=== PATIENT | female | born 1990 | race Caucasian/White ===

== ENCOUNTER 2016-05-16 23:28 | Inpatient (IN) | payer MEDICAID, OTHER ==
[~2016-05-16] VITALS: Ht 170.2 cm; Wt 108.9 kg
[~2016-05-16 23:28] MED LIST: AZIT-21 PO; IBP600T1 PO
[2016-05-17] VITALS (14 sets, daily range): BP systolic 80–122; BP diastolic 37–72
[2016-05-17] MEDS ORDERED: NS IV 1000 ML 1,000 ML IV ONE (00:09)
[2016-05-17 00:31] LABS: BASOPHILS % (AUTO) 0 % (0-10); EOSINOPHILS % (AUTO) 0 % (0-10); LYMPHOCYTES # (AUTO) 1.9 X 10^3 (1.0-4.0); LYMPHOCYTES % (AUTO) 13 % (12-44); MEAN CORPUSCULAR HEMOGLOBIN 29 PG (25-34); MEAN CORPUSCULAR HGB CONC 35 G/DL (32-36); MEAN CORPUSCULAR VOLUME 82 FL (80-99); MEAN PLATELET VOLUME 9.5 FL (7.4-10.4); MONOCYTES # (AUTO) 0.4 X 10^3 (0.0-1.0); MONOCYTES % (AUTO) 3 % (0-12); NEUTROPHILS # (AUTO) 12.2 X 10^3 (1.8-7.8); NEUTROPHILS % (AUTO) 84 % (42-75); PLATELET COUNT 328 10^3/uL (130-400); RED BLOOD COUNT 4.04 10^6/uL (4.35-5.85); RED CELL DISTRIBUTION WIDTH 12.8 % (10.0-14.5); WHITE BLOOD COUNT 14.5 10^3/uL (4.3-11.0)
[2016-05-17] MEDS ORDERED: NS IV 500 ML 500 ML IV ONE (01:21)
[2016-05-17] MEDS ORDERED: MISOPROSTOL 200 MCG (CYTOTEC) TABLET PO ONE ×2 (01:30→09:15)
--- NOTE | 2016-05-17 01:57 | ED GU-Female ---
General Chief Complaint: -Female Stated Complaint: POSS MISCARRIAGE BLEEDING Nursing Triage Note: PATIENT REPORTS VAGINAL BLEEDING STARTING AT 1999, PATIENT REPORTS WAS EVALUATED YESTERDAY FOR SAME AND HAD BLOOD WORK DONE Nursing Sepsis Screen: No Definite Risk Source: patient, old records Exam Limitations: no limitations History of Present Illness Time seen by provider: 23:35 Initial Comments This 25-year-old young lady presents to the emergency room with suspected spontaneous miscarriage and vaginal hemorrhaging. She reports 2 prior ultrasounds have been performed in [place]. The last one was performed on May 15. Records from [facility] were reviewed. Hemoglobin on May 15 was 13.3. HCG was 10,857. Ultrasound report reads "fluid collection within the endometrial cavity without ultrasound features to provide confirmation of a viable intrauterine . Diagnostic considerations include early , failed , ectopic . The possibility of gestational trophoblastic disease should also be considered. Recommend laboratory and ultrasound follow-up in 3 days." Patient continues to have heavy bleeding has worsened over the last few hours. She denies pain or fever. She additionally presented to the [place] emergency room but reported the wait was long. She therefore decided to present to [facility]. Her therapy director is Dr. Gotti. Allergies and Home Medications Allergies Coded Allergies: Sulfa (Sulfonamide Antibiotics) (Verified Allergy, Unknown, 05/16/16) azithromycin (Verified Allergy, Unknown, 05/16/16) Home Medications No Active Prescriptions or Reported Meds Constitutional: no symptoms reported EENTM: no symptoms reported Respiratory: no symptoms reported Cardiovascular: see HPI Gastrointestinal: no symptoms reported Genitourinary: see HPI : Yes Musculoskeletal: no symptoms reported Skin: no symptoms reported Psychiatric/Neurological: No Symptoms Reported Endocrine: No Symptoms Reported Hematologic/Lymphatic: No Symptoms Reported Past Cppptal-Cbrede-Mvnvle Hx Patient Social History Alcohol Use: Denies Use Recreational Drug Use: No Smoking Status: Never a Smoker Recent Foreign Travel: No Contact w/Someone Who Travel: No Recent Infectious Disease Expo: No Recent Hopitalizations: No Surgeries HX Surgeries: Yes (dental) Respiratory Hx Respiratory Disorders: No Cardiovascular Hx Cardiac Disorders: No Neurological Hx Neurological Disorders: No Reproductive System Hx : 3 Hx Para: 1 Hx Total # of Abortions (Spona: 2 Genitourinary Hx Genitourinary Disorders: No Gastrointestinal Hx Gastrointestinal Disorders: No Musculoskeletal Hx Musculoskeletal Disorders: No Endocrine Hx Endocrine Disorders: No HEENT HX ENT Disorders: No Cancer Hx Cancer: No Psychosocial Hx Psychiatric Problems: No Integumentary HX Skin/Integumentary Disorder: No Blood Transfusions Hx Blood Disorders: No Physical Exam Vital Signs Vital Sign - Last 12Hours 05/16/16 23:40 Temp 98.2 Pulse 103 Resp 18 B/P 114/74 Pulse Ox 95 O2 Delivery Room Air Capillary Refill : Less Than 3 Seconds General Appearance: WD/WN no apparent distress HEENT: PERRL/EOMI normal ENT inspection pharynx normal Neck: normal inspection Cardiovascular: no edema no murmur tachycardia Respiratory: lungs clear normal breath sounds no respiratory distress no accessory muscle use Gastrointestinal: normal bowel sounds non tender soft Pelvic: vaginal bleeding other (see progress note) Extremities: normal inspection no pedal edema 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 as tested no motor/sensory deficits alert normal mood/affect oriented x 3 Skin: normal color warm/dry Progress/Results/Core Measures Results/Orders Lab Results Laboratory Tests Test 05/16/16 00:20 05/17/16 00:20 Range/Units Basophils # (Auto) 0.0 0.0-0.1 10^3/uL Basophils (%) (Auto) 0 0-10 % Eosinophils # (Auto) 0.0 0.0-0.3 10^3/uL Eosinophils (%) (Auto) 0 0-10 % Hematocrit 33 L 35-52 % Hemoglobin 11.7 11.5-16.0 G/DL Human Chorionic Gonadotropin, Quant 7950 H <5 MIU/ML Lymphocytes # (Auto) 1.9 1.0-4.0 X 10^3 Lymphocytes (%) (Auto) 13 12-44 % Mean Corpuscular Hemoglobin 29 25-34 PG Mean Corpuscular Hemoglobin Concent 35 32-36 G/DL Mean Corpuscular Volume 82 80-99 FL Mean Platelet Volume 9.5 7.4-10.4 FL Monocytes # (Auto) 0.4 0.0-1.0 X 10^3 Monocytes (%) (Auto) 3 0-12 % Neutrophils # (Auto) 12.2 H 1.8-7.8 X 10^3 Neutrophils (%) (Auto) 84 H 42-75 % Platelet Count 328 130-400 10^3/uL Red Blood Count 4.04 L 4.35-5.85 10^6/uL Red Cell Distribution Width 12.8 10.0-14.5 % White Blood Count 14.5 H 4.3-11.0 10^3/uL C-Reactive Protein High Sensitivity 0.60 H 0.00-0.50 MG/DL My Orders Orders-JOSSELYN ZIEGLER MD Cbc With Automated Diff (05/16/16 23:35) Hcg,Quantitative (05/16/16 23:35) Ua Culture If Indicated (05/16/16 23:35) Saline Lock/Iv-Start (05/17/16 00:09) Ns Iv 1000 Ml (Sodium Chloride 0.9%) (05/17/16 00:09) Red Cells Leukocytes Reduced (05/17/16 00:19) Type And Screen (05/16/16 23:35) Hs C Reactive Protein (05/17/16 00:38) Misoprostol Tablet (Cytotec Tablet) (05/17/16 01:30) Ns Iv 500 Ml (Sodium Chloride 0.9%) (05/17/16 01:21) Protime With Inr (05/17/16 03:06) Partial Thromboplastin Time (05/17/16 03:06) Medications Given in ED Current Medications Medications Dose Ordered Sig/Brett Route Start Time Stop Time Status Last Admin Dose Admin Misoprostol 400 mcg 400 mcg ONCE ONCE PO 05/17/16 01:30 05/17/16 01:31 DC 05/17/16 01:35 400 MCG Sodium Chloride 500 ml @ 0 mls/hr Q0M ONCE IV 05/17/16 01:21 05/17/16 01:24 DC 05/17/16 01:27 0 MLS/HR Sodium Chloride 1,000 ml @ 0 mls/hr Q0M ONCE IV 05/17/16 00:09 05/17/16 00:10 DC 05/17/16 00:21 0 MLS/HR Vital Signs/I&O Vital Sign - Last 12Hours 05/16/16 05/17/16 05/17/16 23:40 01:21 01:49 Temp 98.2 Pulse 103 90 90 Resp 18 16 18 B/P 114/74 80/37 104/67 Pulse Ox 95 97 100 O2 Delivery Room Air Room Air Room Air Blood Pressure Mean: 51 Progress Note #1: Time: 01:10 Progress Note Patient continues to have vaginal bleeding. Patient experienced a syncopal episode while having orthostatic blood pressures measured. She was lowered to the floor by staff without injury. She was hypotensive after this episode. A liter of IV fluids were infused. 3 units of blood were ordered for crossmatch. Dr. Mccormick was contacted and case reviewed. She requested that a pelvic exam be performed to remove any possible tissue or clot from the cervix. Plan is to treat with Cytotec 400 g orally, keep NPO, and anticipate D&C later this morning. Dr. Mccormick requests a repeat hemoglobin be performed 05:00. Progress Note #2: Time: 03:03 Progress Note Pelvic exam revealed a large amount of clot in the vaginal vault. No obvious tissue. There was clot and thick mucus inside the cervical os which was slightly dilated to about 1 cm or less. No obvious tissue was present. There was a small amount of active bleeding at the time of pelvic exam. Patient tolerated the procedure well. Prior to exam patient was hypotensive again. Another 500 mL of normal saline was ordered and infused. Blood pressure rebounded and she was normotensive. A unit of red blood cells was ordered for transfusion. Departure Impression Impression: Primary Impression: Acute blood loss anemia Additional Impressions: Orthostatic hypotension Spontaneous Syncope Qualified Code: R55 - Syncope and collapse Disposition: ADMITTED INPATIENT Condition: Improved Decision to Admit Reason: Admit from ER (General) Decision to Admit/Date: May 17, 2016 Time/Decision to Admit Time: 01:10 Departure-Patient Inst. Referrals: NO,LOCAL PHYSICIAN (PCP/Family) Primary Care Physician Scripts No Active Prescriptions or Reported Meds JOSSELYN ZIEGLER MD May 17, 2016 01:57
[2016-05-17 03:31] LABS: INR 1.2 (0.8-1.4); PROTHROMBIN TIME PATIENT 15.3 SEC (12.2-14.7)
[2016-05-17] MEDS ORDERED: MULT-974 PO (04:18)
[2016-05-17] MEDS ORDERED: ONDANSETRON 4 MG/2 ML (SDV) Z0FRAN IVP PRN (04:30)
[2016-05-17] MEDS ORDERED: NS IV 1000 ML 1,000 ML IV SCH (04:30)
[2016-05-17 05:42] LABS: BASOPHILS % (AUTO) 0 % (0-10); EOSINOPHILS % (AUTO) 0 % (0-10); LYMPHOCYTES # (AUTO) 1.1 X 10^3 (1.0-4.0); LYMPHOCYTES % (AUTO) 12 % (12-44); MEAN CORPUSCULAR HEMOGLOBIN 29 PG (25-34); MEAN CORPUSCULAR HGB CONC 35 G/DL (32-36); MEAN CORPUSCULAR VOLUME 83 FL (80-99); MEAN PLATELET VOLUME 9.4 FL (7.4-10.4); MONOCYTES # (AUTO) 0.2 X 10^3 (0.0-1.0); MONOCYTES % (AUTO) 2 % (0-12); NEUTROPHILS # (AUTO) 7.7 X 10^3 (1.8-7.8); NEUTROPHILS % (AUTO) 86 % (42-75); PLATELET COUNT 246 10^3/uL (130-400); RED BLOOD COUNT 3.61 10^6/uL (4.35-5.85); RED CELL DISTRIBUTION WIDTH 12.7 % (10.0-14.5); WHITE BLOOD COUNT 8.9 10^3/uL (4.3-11.0)
[2016-05-17 06:05] LABS: ANION GAP 7 MMOL/L (5-14); BLOOD UREA NITROGEN 13 MG/DL (7-18); BUN/CREATININE RATIO 19; CALCIUM 7.9 MG/DL (8.5-10.1); CARBON DIOXIDE 21 MMOL/L (21-32); CHLORIDE 112 MMOL/L (98-107); CREATININE SERUM 0.69 MG/DL (0.60-1.30); GFR ESTIMATED > 60; GLUCOSE 130 MG/DL (70-105); POTASSIUM 4.3 MMOL/L (3.6-5.0); SODIUM 140 MMOL/L (135-145)
[2016-05-17] MEDS ORDERED: ACETAMINOPHEN 500 MG TAB (TYLENOL) PO PRN (07:30)
[2016-05-17] MEDS ORDERED: IBUPROFEN 600 MG (MOTRIN) TAB PO PRN (07:30)
[2016-05-17] MEDS ORDERED: FLU TRIvalent (5 YOA+) 2016-17 (AFLURIA) 0.5 ML IM ONE (07:30)
[2016-05-17] MEDS ORDERED: KETOROLAC 30 MG/ML VIAL IVP NR (08:45)
[2016-05-17] MEDS ORDERED: KETOROLAC 30 MG/ML VIAL IVP ONE (08:45)
--- NOTE | 2016-05-17 09:10 | Short Stay Summary ---
History of Present Illness History of Present Illness Date of Admission May 17, 2016 at 01:57 Date of Discharge Attending Physician Maylin Moreno DO Admitting Physician No,Local Physician Consult Allergies and Home Medications Allergies Coded Allergies: Sulfa (Sulfonamide Antibiotics) (Verified Allergy, Unknown, 05/16/16) azithromycin (Verified Allergy, Unknown, 05/16/16) Home Medications Multivitamin 1 Each Tablet 1 EACH PO DAILY (Reported) Past Mdvejap-Utkamp-Pvuvpe Hx Patient Social History Alcohol Use: Denies Use Recreational Drug Use: No Smoking Status: Never a Smoker Physical Abuse Screen: No Sexual Abuse: No Recent Foreign Travel: No Contact w/other who traveled: No Recent Hopitalizations: No Recent Infectious Disease Expo: No Surgeries HX Surgeries: Yes (dental) Respiratory Hx Respiratory Disorders: No Cardiovascular Hx Cardiovascular Disorders: No Neurological Hx Neurological Disorders: No Reproductive System Hx : 3 Hx Para: 1 Hx Total # of Abortions (Spona: 2 Genitourinary Hx Genitourinary Disorders: No Gastrointestinal Hx Gastrointestinal Disorders: No Musculoskeletal Hx Musculoskeletal Disorders: No Endocrine Hx Endocrine Disorders: No HEENT HX ENT Disorders: No Cancer Hx Cancer: No Psychosocial Hx Psychiatric Problems: No Integumentary HX Skin/Integumentary Disorder: No Blood Transfusions Hx Blood Disorders: No Adverse Reaction to a Blood Tr: No Family Medical History Family Hx: Asthma 19 MOTHER Diabetes mellitus 19 MOTHER Physical Exam Vital Signs Vital Sign - Last 12Hours 05/16/16 23:40 Temp 98.2 Pulse 103 Resp 18 B/P 114/74 Pulse Ox 95 O2 Delivery Room Air Capillary Refill : Less Than 3 Seconds Clinical Quality Measures DVT/VTE Risk/Contraindication: Risk Factor Score Per Nursin RFS Level Per Nursing on Admit: 1=Low/No VTE PPX Short Stay Diagnosis Conclusion Labs Laboratory Tests 05/17/16 00:20: C-Reactive Protein High Sensitivity 0.60H 05/17/16 03:16: Activated Partial Thromboplast Time 26, INR Comment 1.2, Prothrombin Time 15.3H 05/17/16 05:15: Anion Gap 7, BUN/Creatinine Ratio 19, Basophils # (Auto) 0.0, Basophils (%) ( Auto) 0, Blood Urea Nitrogen 13, Calcium Level 7.9L, Carbon Dioxide Level 21, Chloride Level 112H, Creatinine 0.69, Eosinophils # (Auto) 0.0, Eosinophils (%) (Auto) 0, Estimat Glomerular Filtration Rate > 60, Glucose Level 130H, Hematocrit 30L, Hemoglobin 10.5L, Lymphocytes # (Auto) 1.1, Lymphocytes (%) ( Auto) 12, Mean Corpuscular Hemoglobin 29, Mean Corpuscular Hemoglobin Concent 35 , Mean Corpuscular Volume 83, Mean Platelet Volume 9.4, Monocytes # (Auto) 0.2, Monocytes (%) (Auto) 2, Neutrophils # (Auto) 7.7, Neutrophils (%) (Auto) 86H, Platelet Count 246, Potassium Level 4.3, Red Blood Count 3.61L, Red Cell Distribution Width 12.7, Sodium Level 140, White Blood Count 8.9 MAYLIN MORENO DO May 17, 2016 09:10
--- NOTE | 2016-05-17 09:13 | History & Physical-OB/GYN ---
History of Present Illness History of Present Illness Reason for visit/HPI this is a 25-year-old 2 para 1 female who presented from the emergency room and could be an heavy vaginal bleeding. Having heavy bleeding and clots last evening. She is a patient in [place] and had seen Dr. Gotti. She had called him stating that she had started bleeding. She did have an ultrasound from 12/22 showing no intrauterine . There did appear to be some fluid. Her beta hCG was 10,000. HCG was 13.3 The patient states that about an hour after she saw Dr. Ahmadi she became lightheaded and presented to the ER. She states she came here because the ER in [place] was very busy and she didn't think she could wait with the amount of bleeding that she was having. while in the ED, Dr. Crum ordered orthostatic blood pressures. The patient had a syncopal episode while these were being done. Her blood pressure dropped to a 70/40 level. She had a large amount of clots and bleeding and had an exam in the ER that removed form the clots from the vagina as well as from the cervix. The patient states she thinks she passed some tissue within the bleeding started yesterday but has not further passed tissue. She was given 1.5 L of fluid in the ED. Her hemoglobin on admission to the ED was 11.7. 2 days prior was 13.3. Once they felt she was stable, they gave her 400 g of Cytotec and started a unit of blood and send her to the floor. Documentation from ED - This 25-year-old young lady presents to the emergency room with suspected spontaneous miscarriage and vaginal hemorrhaging. She reports 2 prior ultrasounds have been performed in [place]. The last one was performed on May 15. Records from [facility] were reviewed. Hemoglobin on May 15 was 13.3. HCG was 10,857. Ultrasound report reads "fluid collection within the endometrial cavity without ultrasound features to provide confirmation of a viable intrauterine . Diagnostic considerations include early , failed , ectopic . The possibility of gestational trophoblastic disease should also be considered. Recommend laboratory and ultrasound follow-up in 3 days." Patient continues to have heavy bleeding has worsened over the last few hours. She denies pain or fever. She additionally presented to the [place] emergency room but reported the wait was long. She therefore decided to present to [facility]. Her acting teacher is Dr. Gotti. Date of Admission May 17, 2016 at 01:57 I consulted on this patient on 05/17/16 09:12 Attending Physician Alethea Mccormick DO Admitting Physician Leora,Local Physician Consult Allergies and Home Medications Allergies Coded Allergies: Sulfa (Sulfonamide Antibiotics) (Verified Allergy, Unknown, 05/16/16) azithromycin (Verified Allergy, Unknown, 05/16/16) Home Medications Multivitamin 1 Each Tablet 1 EACH PO DAILY (Reported) Past Hlwizcb-Ogyjww-Ocnsgl Hx Patient Social History Number of Children: 1 Number of living children: 1 Alcohol Use: Denies Use Recreational Drug Use: No Smoking Status: Never a Smoker Physical Abuse Screen: No Sexual Abuse: No Recent Foreign Travel: No Contact w/other who traveled: No Recent Hopitalizations: No Recent Infectious Disease Expo: No Surgeries HX Surgeries: Yes (dental) Respiratory Hx Respiratory Disorders: No Cardiovascular Hx Cardiovascular Disorders: No Neurological Hx Neurological Disorders: No Reproductive System Hx : 2 Hx Para: 1 Hx Total # of Abortions (Spona: 2 Genitourinary Hx Genitourinary Disorders: No Gastrointestinal Hx Gastrointestinal Disorders: No Musculoskeletal Hx Musculoskeletal Disorders: No Endocrine Hx Endocrine Disorders: No HEENT HX ENT Disorders: No Cancer Hx Cancer: No Psychosocial Hx Psychiatric Problems: No Integumentary HX Skin/Integumentary Disorder: No Blood Transfusions Hx Blood Disorders: No Adverse Reaction to a Blood Tr: No Family Medical History Family Hx: Asthma 19 MOTHER Diabetes mellitus 19 MOTHER Constitutional: no symptoms reportedNo chills, No diaphoresis, No dizziness, No fever, No malaise, No weakness, No weight gain, No weight loss, other (had felt dizziness and had a syncopal episode, but feels much better now.) Respiratory: no symptoms reported Cardiovascular: no symptoms reported Gastrointestinal: other (she is Having cramping in the lower pelvis) Genitourinary: other (she was feeling better but then got up to the bathroom and passed a laels much better) : No (incomplete AB. The patient was approximately 11 weeks from last menstrual period) Musculoskeletal: no symptoms reported Skin: no symptoms reported Psychiatric/Neurological: No Symptoms Reported All Other Systems Reviewed Negative Unless Noted: Yes Physical Exam Physical Exam Vital Signs Vital Signs Date Time Temp Pulse Resp B/P Pulse Ox O2 Delivery O2 Flow Rate FiO2 05/17/16 07:42 99.0 73 05/17/16 06:58 86 18 99/63 100 05/17/16 06:00 98.3 89 18 101/59 100 05/17/16 05:30 83 18 122/69 100 05/17/16 05:00 97 18 96/53 97 05/17/16 04:30 83 18 112/60 100 05/17/16 04:05 78 18 112/67 100 05/17/16 04:05 82 05/17/16 03:47 97.8 85 18 117/72 100 Room Air 05/17/16 03:34 77 18 100 05/17/16 03:00 97.8 84 05/17/16 01:49 90 18 104/67 100 Room Air 05/17/16 01:21 90 16 80/37 97 Room Air 05/16/16 23:40 98.2 103 18 114/74 95 Room Air I & O 05/17/16 07:00 Intake Total 1500 ml Output Total 100 ml Balance 1400 ml Capillary Refill : Less Than 3 Seconds Labs Laboratory Tests 05/17/16 00:20: C-Reactive Protein High Sensitivity 0.60H 05/17/16 03:16: Activated Partial Thromboplast Time 26, INR Comment 1.2, Prothrombin Time 15.3H 05/17/16 05:15: Anion Gap 7, BUN/Creatinine Ratio 19, Basophils # (Auto) 0.0, Basophils (%) ( Auto) 0, Blood Urea Nitrogen 13, Calcium Level 7.9L, Carbon Dioxide Level 21, Chloride Level 112H, Creatinine 0.69, Eosinophils # (Auto) 0.0, Eosinophils (%) (Auto) 0, Estimat Glomerular Filtration Rate > 60, Glucose Level 130H, Hematocrit 30L, Hemoglobin 10.5L, Lymphocytes # (Auto) 1.1, Lymphocytes (%) ( Auto) 12, Mean Corpuscular Hemoglobin 29, Mean Corpuscular Hemoglobin Concent 35 , Mean Corpuscular Volume 83, Mean Platelet Volume 9.4, Monocytes # (Auto) 0.2, Monocytes (%) (Auto) 2, Neutrophils # (Auto) 7.7, Neutrophils (%) (Auto) 86H, Platelet Count 246, Potassium Level 4.3, Red Blood Count 3.61L, Red Cell Distribution Width 12.7, Sodium Level 140, White Blood Count 8.9 General Appearance: No Apparent Distress, Other (she has no pallor) Respiratory: Lungs Clear Cardiovascular: Regular Rate, Rhythm (, color is good) Abdominal: normal bowel sounds Gynecology/General: Other (no current bleeding. There is some old blood in the vault uterus is nontender) Vagina: Bleeding (see above) Cervix: WNL Cervix OS: open Uterus: WNL, Tender (uterus is nontender) Pelvic Exam: vaginal bleeding (see above) Assessment/Plan Assessment and Plan 1. incomplete AB 2. syncopal episode 3. Suspected acute blood loss anemia. Hemoglobin currently is 10.5 after bleeding and 1 unit of blood. Has received a 2nd unit Will give an additional dose of cytotec. At this point don't need to proceed with dilation and curettage. We'll monitor her today after receiving the Cytotec for bleeding cramping. If the bleeding continues to be excessive or she continues to be syncopal then we may consider a dilation and curettage later today. The patient is understanding. We wants to avoid surgery at this point. she had an appointment with Dr. Gotti tomorrow. She will call him and reschedule if she is still in the hospital. Or she will see him tomorrow to discuss further follow-up. If she continues to have bleeding a D&C still may be necessary because of the suggestion of trophoblastic disease. However findings are nonspecific and she has not passed tissue that appears to be trophoblastic. I would recommend following her hCGs until they're 0. Clinical Quality Measures DVT/VTE Risk/Contraindication: Risk Factor Score Per Nursin RFS Level Per Nursing on Admit: 1=Low/No VTE PPX Copy Copies To 1: Patrice Gotti DO Copy Copies To 1: DO JOSH Salazar ANGELA C DO May 17, 2016 09:13
[2016-05-17] MEDS ORDERED: morphine INJ 4 MG/ML 1 ML (VIAL/SYRINGE) IVP PRN (09:30)
[2016-05-17] MEDS ORDERED: MISOPROSTOL 200 MCG (CYTOTEC) TABLET PR NR (09:30)
[2016-05-17] MEDS ORDERED: FERROUS SULF 325 MG (IRON) TAB PO ONE (09:50)
[2016-05-17] MEDS ORDERED: IBUP-1773 PO (16:29)
[2016-05-17] MEDS ORDERED: FERR-74 PO (16:29)
--- NOTE | 2016-05-17 16:31 | Discharge Inst-Women's Service ---
Discharge Inst-Women's Serv Depart Medication/Instructions New, Converted or Re-Newed RX: Call to Patients Pharmacy Final Diagnosis incomplete ab vaginal hemorrhage acute blood loss anemia Consults/Follow Up Additional Follow Up: Yes Activity Activity: Activity as Tolerated Driving Instructions: You May Drive NO SMOKING: NO SMOKING Nothing Inside Vagina: No Douching, No [place], No Tampons Diet Discharge Diet: No Restrictions Symptoms to Report to : Swelling Increased, Bleeding Excessive, Pain Increased, Vaginal Bleeding Increase, Vaginal Discharge Foul For Any Problems or Questions: Contact Your Physician MAYLIN MORENO DO May 17, 2016 16:31
[2016-05-18] MEDS ORDERED: FERROUS SULF 325 MG (IRON) TAB PO SCH (07:00)
== END 2016-05-17 17:15 | disposition home or self-care (01) | DRG 779 ==
LOC: EDUNIT# 23:28 → ER 23:35 → WS 05-17 01:57
PROVIDERS: ADMIT Obstetrics & Gynecology; ATTEND Obstetrics & Gynecology
DX: O03.1 Delayed or excessive hemorrhage following incomplete spontaneous abortion (principal); D62 Acute posthemorrhagic anemia; I95.1 Orthostatic hypotension; Z3A.11 11 weeks gestation of pregnancy
CPT/HCPCS: 36415; 36430; 80048; 84702; 85025; 85610; 85730; 86141; 86850; 86900; 86901; 86920; 96360; 96361